=== PATIENT | female | born 1955 | race Caucasian/White ===

== ENCOUNTER → 2020-02-11 | Outpatient (CLI) | payer BC, MEDICARE ==
[~2020-02-11] MED LIST: AMIT10TA PO; AMIT25TA PO; BORON PO; CHLORIDE PO; CYAN1TAB29 PO; FENT1PAT9 TP; HYDR-3245 PO; LITHIUM PO; MAGNESIUM PO; OMEP20CA9 PO; OXYC-302 PO; POTASSIUM PO; RALO60TA PO; SODIUM PO; ZOLP10TA5 PO; [UNRECOGNIZED DRUG - OTHER] PO; robaxin PO
[2020-02-11 12:27] LABS: BASOPHILS # (AUTO) 0.01 x10^3/uL (0-0.1); BASOPHILS % (AUTO) 0 % (0-1); EOSINOPHILS # (AUTO) 0.04 x10^3/uL (0-0.4); EOSINOPHILS % (AUTO) 1 % (1-7); LYMPHOCYTES # (AUTO) 0.74 x10^3/uL (1-3.4); LYMPHOCYTES % (AUTO) 20 % (22-44); MD NO; MEAN CORPUSCULAR HEMOGLOBIN 30.8 pg (27.0-34.8); MEAN CORPUSCULAR HGB CONC 33.3 g/dL (32.4-35.8); MEAN CORPUSCULAR VOLUME 92.7 fL (80-100); MEAN PLATELET VOLUME 10.5 fL (7.4-10.4); MONOCYTES # (AUTO) 0.22 x10^3/uL (0.2-0.8); MONOCYTES % (AUTO) 6 % (2-9); NEUTROPHILS % (AUTO) 73 % (42-75); PLATELET COUNT 175 x10^3/uL (130-400); RED BLOOD COUNT 4.43 x10^6/uL (3.82-5.3); RED CELL DISTRIBUTION WIDTH 14.2 % (9.6-15.2)
[2020-02-11 12:37] LABS: ANION GAP 5 mmol/L (5-15); CALCIUM 9.1 mg/dL (8.5-10.1); CHLORIDE 110 mmol/L (98-107); CREATININE 0.54 mg/dL (0.55-1.02)
[2020-02-11 12:41] LABS: INTERNATIONAL NORMALIZED RATIO 1.04 (0.93-1.1)
== END | disposition home or self-care (01) ==
LOC: STAR 11:14
PROVIDERS: ATTEND Neurological Surgery
DX: Z01.818 Encounter for other preprocedural examination (principal); I51.7 Cardiomegaly; M48.061 Spinal stenosis, lumbar region without neurogenic claudication
CPT/HCPCS: 36415; 80048; 85025; 85610; 85730; 93005

== ENCOUNTER 2020-02-21 12:35 | Day surgery (SDC) | payer BC, MEDICARE ==
[~2020-02-21] VITALS: Ht 165.1 cm; Wt 50.9 kg
[2020-02-21] MEDS ORDERED: LIDOCAINE-MPF 1%, 2ML ONE (12:57)
[2020-02-21] MEDS ORDERED: CHLORHEXIDINE 15 ML UDC ONE (12:58)
[2020-02-21] MEDS ORDERED: LACTATED RINGERS 1,000 ML IV SCH (13:00)
[2020-02-21] MEDS ORDERED: CHLORHEXIDINE 15 ML UDC MM STA (13:02)
[2020-02-21 13:09] VITALS: BP 136/81
[2020-02-21] MEDS ORDERED: CHLORHEXIDINE 15 ML UDC MM ONE (14:00)
[2020-02-21] MEDS ORDERED: BACITRACIN 50,000 UNIT ONE (14:05)
[2020-02-21] MEDS ORDERED: BUPIVACAINE/PF-EPI 0.5% 1:200K ONE (14:05)
[2020-02-21] MEDS ORDERED: THROMBIN 5,000 UNIT VIAL TP ONE (14:05)
[2020-02-21] MEDS ORDERED: FENTANYL PF 250 MCG/5ML ONE (14:50)
[2020-02-21] MEDS ORDERED: MIDAZOLAM 1 MG/ML, 2ML ONE (14:50)
[2020-02-21] MEDS ORDERED: PROPOFOL 10 MG/ML, 20ML ONE (14:51)
[2020-02-21] MEDS ORDERED: SUCCINYLCHOLINE 20 MG/ML, 10ML ONE (14:53)
[2020-02-21] MEDS ORDERED: ROCURONIUM 10MG/ML,5ML ONE (14:53)
[2020-02-21] MEDS ORDERED: CEFAZOLIN 1,000 MG ONE (14:58)
[2020-02-21] MEDS ORDERED: DEXAMETHASONE 4 MG/ML, 1ML ONE (14:58)
[2020-02-21] MEDS ORDERED: EPHEDRINE 50 MG/ML, 1ML ONE (14:58)
[2020-02-21] MEDS ORDERED: ONDANSETRON 2MG/ML, 2ML ONE (14:58)
[2020-02-21] MEDS ORDERED: SUGAMMADEX 200 MG/2 ML IVPush ONE (14:58)
[2020-02-21] MEDS ORDERED: methylPREDNISolone SOD SUCC 125 MG/2 ML ONE (15:56)
[2020-02-21] MEDS ORDERED: FENTANYL PF 100 MCG/2ML ONE ×3 (15:57→16:40)
[2020-02-21] MEDS ORDERED: HYDROmorphone 2 MG/ML, 1ML ONE (16:37)
[2020-02-21] MEDS ORDERED: OXYcodone 5 MG/5 ML ORAL.SOL UDC ONE (16:40)
[2020-02-21] MEDS: FENTANYL PF 100 MCG/2ML IV PRN ×2 (16:40→16:45)
[2020-02-21] MEDS ORDERED: MEPERIDINE/PF 25MG/ML,1ML ONE (16:41)
[2020-02-21] MEDS ORDERED: DIAZEPAM 5 MG/ML, 2ML ONE (16:41)
[2020-02-21] MEDS ORDERED: ACETAMINOPHEN 325 MG TABLET PO PRN (17:00)
[2020-02-21] MEDS ORDERED: HALOPERIDOL 5 MG/ML IV PRN (17:00)
[2020-02-21] MEDS ORDERED: PROMETHAZINE 12.5 MG SUPP PR PRN (17:00)
[2020-02-21] MEDS ORDERED: OXYcodone 5 MG/5 ML ORAL.SOL UDC PO PRN (17:00)
[2020-02-21] MEDS ORDERED: ONDANSETRON 2MG/ML, 2ML IV PRN (17:00)
[2020-02-21] MEDS ORDERED: LABETALOL 5MG/ML, 20ML IV PRN (17:00)
[2020-02-21] MEDS ORDERED: PROMETHAZINE 25 MG/ML, 1ML IV PRN (17:00)
[2020-02-21] MEDS ORDERED: ALBUTEROL SULFATE 2.5 MG/3 ML NPPB PRN (17:00)
[2020-02-21] MEDS ORDERED: hydrALAzine 20 MG/ML, 1ML IV PRN (17:00)
[2020-02-21] MEDS ORDERED: MEPERIDINE/PF 25MG/ML,1ML IVPush PRN (17:00)
[2020-02-21] MEDS ORDERED: ONDANSETRON ODT 8 MG PO PRN (17:00)
[2020-02-21] MEDS ORDERED: EPHEDRINE 50 MG/ML, 1ML IVPush PRN (17:00)
[2020-02-21] MEDS ORDERED: MIDAZOLAM 1 MG/ML, 2ML IV PRN (17:00)
[2020-02-21] MEDS ORDERED: DIAZEPAM 5 MG/ML, 2ML IVPush PRN (17:00)
[2020-02-21] MEDS ORDERED: HYDROmorphone 2 MG/ML, 1ML IVPush PRN (17:00)
== END 2020-02-21 18:45 | disposition home or self-care (01) ==
LOC: OR 12:35
PROVIDERS: ATTEND Neurological Surgery
DX: M48.07 Spinal stenosis, lumbosacral region (principal); M21.41 Flat foot [pes planus] (acquired), right foot; G43.909 Migraine, unspecified, not intractable, without status migrainosus; G47.00 Insomnia, unspecified; Z79.891 Long term (current) use of opiate analgesic; Z79.899 Other long term (current) drug therapy; Z87.891 Personal history of nicotine dependence; Z88.5 Allergy status to narcotic agent; Z98.1 Arthrodesis status; Z82.61 Family history of arthritis
CPT/HCPCS: 63047; 63048; 72100; J0330; J0690; J1100; J2175; J2250; J2405; J2704; J2930; J3010; J7120